=== PATIENT | female | born 1980 | race Two or more races ===

== ENCOUNTER 2016-10-04 15:17 | Emergency (ER) | payer MEDICAID ==
[2016-10-04 17:37] LABS: ABSOLUTE NEUTROPHIL COUNT 6.6 K/mm3 (1.8-7.7); BASO % 0.4 % (0.2-1.0); HEMATOCRIT 31.2 % (37.0-47.0); HEMOGLOBIN 11.1 gm/l (12.0-16.0); IMM NEUT% 0.3 % (0-1); LYMPH # 0.7 (1.0-4.8); LYMPH % 9.8 % (15-45); MEAN CELL VOLUME 91.8 fl (81.0-99.0); MEAN CORPUSCULAR HEMOGLOBIN 32.6 pg (27.0-31.0); MEAN CORPUSCULAR HGB CONC 35.6 g/dl (33.0-37.0); MEAN PLATELET VOLUME 9.6 fl (7.4-10.4); MONO # 0.2 (0.0-0.8); MONO % 2.1 % (4-12); NEUT % 87.4 % (43-75); PLATELET COUNT 234 K/mm3 (130-400)
[2016-10-04 17:49] LABS: ALB/GLOB RATIO 1.2 (>1.0); ALBUMIN 3.7 gm/dL (3.5-5.7); CALCIUM 8.9 mg/dL (8.6-10.3); INR 0.94; PARTIAL THROMBOPLASTIN TIME 21.7 SECONDS (24.5-33.0); PROTHROMBIN TIME 9.9 SECONDS (9.3-11.4)
[2016-10-04] MEDS ORDERED: PANTOPRAZOLE 40 MG TABLET DR PO ONE (19:02)
== END 2016-10-04 19:13 | disposition home or self-care (01) ==
LOC: ED 15:17
DX: O21.8 Other vomiting complicating pregnancy (principal); K92.0 Hematemesis; Z3A.15 15 weeks gestation of pregnancy
CPT/HCPCS: 83690; 85025; 80053; 85730; 85610; 99283 ×2; A9270